=== PATIENT | female | born 1955 | race Caucasian/White ===

== ENCOUNTER → 2018-04-08 | Outpatient (CLI) | payer OTHER | LOC: BMCIMAGING 15:05 | PROVIDERS: ATTEND Nurse Practitioner Women's Health | DX: N93.8 Other specified abnormal uterine and vaginal bleeding (principal); E34.9 Endocrine disorder, unspecified; N83.201 Unspecified ovarian cyst, right side ==

== ENCOUNTER 2018-08-11 06:28 | Day surgery (SDC) | payer SELFPAY, OTHER | END 2018-08-11 10:37 | disposition home or self-care (01) | LOC: FSGY 06:28 ==